=== PATIENT | female | born 1960 | race Caucasian/White ===

== ENCOUNTER 2024-05-12 12:46 | Outpatient (CLI) | payer MEDICARE | END 2024-05-12 12:47 | disposition home or self-care (01) | LOC: CSHMAMMO 12:46 | PROVIDERS: ATTEND Nurse Practitioner Family | DX: Z12.31 Encounter for screening mammogram for malignant neoplasm of breast (principal); Z80.3 Family history of malignant neoplasm of breast; Z98.82 Breast implant status | CPT/HCPCS: 77063; 77067 ==